=== PATIENT | male | born 1995 | race African-American/Black ===

== ENCOUNTER 2017-01-22 23:22 | Emergency (ER) | payer SELFPAY ==
[~2017-01-22] VITALS: Ht 167.6 cm; Wt 61.2 kg
[2017-01-22 23:47] VITALS: BP 132/78
[2017-01-23] MEDS ORDERED: predniSONE 20 MG TABLET PO ONE (00:15)
[2017-01-23] MEDS ORDERED: METH4TAB2 PO (00:22)
--- NOTE | 2017-01-23 00:22 | PHYS DOC ---
Past Medical History Past Medical History: No Pertinent History Past Surgical History: No Surgical History Alcohol Use: None Drug Use: Marijuana Adult General Chief Complaint Chief Complaint: CHEST WALL PAIN HPI HPI Patient is a 21 year old male who presents with complaint of recurrent chest pain. Patient states that he has been having symptoms over the past year that come and go. Patient states that the pain has been along the left side of his chest but also states that he has had pain bilaterally. Patient states over the past 2-3 weeks he has had more frequent symptoms. 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 The patient denies any significant past medical history. Patient does admit to history of tobacco use and marijuana use but denies any other drug use. Patient has not had any associated fever, productive cough, shortness of breath, nausea , or vomiting with his symptoms. Patient has not taken any medications to help with his symptoms. Patient does not currently follow with a physician. Patient denies any known exacerbating factors but states that the pain comes and goes spontaneously. [] Review of Systems Review of Systems Constitutional: Denies fever or chills [] Eyes: Denies change in visual acuity, redness, or eye pain [] HENT: Denies nasal congestion or sore throat [] Respiratory: Denies cough or shortness of breath [] Cardiovascular: Chest pain [] GI: Denies abdominal pain, nausea, vomiting, bloody stools or diarrhea [] : Denies dysuria or hematuria [] Musculoskeletal: Denies back pain or joint pain [] Integument: Denies rash or skin lesions [] Neurologic: Denies headache, focal weakness or sensory changes [] Current Medications Current Medications Current Medications Medications (Trade) Dose Ordered Sig/[facility] Start Time Stop Time Status Last Admin Dose Admin Prednisone (Prednisone) 50 mg 1X ONCE 01/23/17 00:15 01/23/17 00:16 01/23/17 00:10 50 MG Allergies Allergies Allergies Coded Allergies Type Severity Reaction Last Updated Verified No Known Drug Allergies 01/22/17 No Physical Exam Physical Exam Constitutional: Alert, afebrile, no acute distress. [] HENT: Normocephalic, atraumatic, bilateral external ears normal, oropharynx moist, no oral exudates, nose normal. [] Eyes: PERRLA, EOMI, conjunctiva normal, no discharge. [] Neck: Normal range of motion, no tenderness, supple, no stridor. [] Cardiovascular:Heart rate regular rhythm, no murmur [] Lungs & Thorax: Bilateral breath sounds clear to auscultation [] Abdomen: Bowel sounds normal, soft, no tenderness, no masses, no pulsatile masses. [] Skin: Warm, dry, no erythema, no rash. [] Back: No tenderness, no CVA tenderness. [] Extremities: No tenderness, no cyanosis, no clubbing, ROM intact, no edema. [] Neurologic: Alert and oriented X 3, normal motor function, normal sensory function, no focal deficits noted. [] Current Patient Data Vital Signs Vital Signs Date Time Temp Pulse Resp B/P (MAP) Pulse Ox O2 Delivery O2 Flow Rate FiO2 01/22/17 23:47 98.1 46 16 132/78 (96) 98 Room Air 98.1 EKG EKG Interpreted by me: Heart rate 47, sinus rhythm, normal intervals, mild J-point elevation present in the precordial leads, no acute ST elevations or depressions , no acute T-wave changes [] Radiology/Procedures Radiology/Procedures Two-view chest x-ray interpreted by me: No pulmonary infiltrates, no hilar masses, normal cardiac silhouette [] Course & Med Decision Making Course & Med Decision Making Pertinent Labs and Imaging studies reviewed. (See chart for details) Patient's chest x-ray and EKG are unremarkable. The patient's symptoms appear consistent with musculoskeletal etiology for chest pain. There is no evidence that the patient's pain is acutely life-threatening at this time. Due to chronicity of symptoms, I have elected to treat the patient with steroid therapy. Patient started on prednisone in the emergency department. The patient will continue on a Medrol Dosepak taper for continued treatment with recommended follow-up in one week if symptoms are not improving. Advised return emergency department for any worsening symptoms. Patient voiced understanding and in agreement with treatment plan. Dragon Disclaimer Dragon Disclaimer This electronic medical record was generated, in whole or in part, using a voice recognition dictation system. Departure Departure Impression: Primary Impression: Chest wall pain Disposition: HOME, SELF-CARE Condition: STABLE Referrals: NO PCP (PCP) Patient Instructions: Chest Wall Pain Additional Instructions: Follow-up in one week with primary doctor for reevaluation. Return to the emergency department for any worsening symptoms. Scripts Methylprednisolone (MEDROL) 4 Mg Tab.ds.pk 1 PKG PO UD, #1 PKG Prov: MARION MOSS MD 01/23/17 MARION MOSS MD Jan 23, 2017 00:22
--- NOTE | 2017-01-23 06:39 | EKG ---
[facility] [address] [place] [address] Test Date: 2017-01-22 Test Time: 23:41:25 Pat Name: KUN FELDER Department: Room: Gender: M [employer]ting [employer] Operator: : [id number] Requested By: MARION MOSS Order Number: [id number] Reading MD: Kathy Pacheco Measurements Intervals [place] Rate: 47 P: 53 OR: 160 QRS: 70 QRSD: 86 T: 48 QT: 412 QTc: 365 Interpretive Statements SINUS BRADYCARDIA OTHERWISE NORMAL ECG Electronically Signed On 01-26-2017 20:53:55 CDT by Kathy Pacheco
--- NOTE | 2017-01-23 07:06 | RAD ---
Indication: Left-sided chest pain. Time of exam 0000 hours. FINDINGS: The heart size is normal. The lungs are clear. No pleural effusion or pneumothorax is identified. The pulmonary vascularity is normal. IMPRESSION: No acute abnormality detected.
== END 2017-01-23 01:02 | disposition home or self-care (01) ==
LOC: ER 23:24
DX: R07.89 Other chest pain (principal); F12.10 Cannabis abuse, uncomplicated
CPT/HCPCS: 71020; 93005; 99284; J7512